=== PATIENT | female | born 1955 | race Caucasian/White ===

== ENCOUNTER 2018-09-09 12:43 | Emergency (ER) | payer OTHER ==
[2018-09-09 23:15] VITALS: BP 161/81
--- NOTE | 2018-09-10 07:40 | EDM.PDOC ---
ED HPI GENERAL MEDICAL PROBLEM - General Chief Complaint: General Stated Complaint: SENT DR [facility] Time Seen by Provider: 09/09/18 13:40 Source of Information: Reports: Patient History Limitations: Reports: No Limitations - History of Present Illness INITIAL COMMENTS - FREE TEXT/NARRATIVE: She was seen by nurse practitioner Yue Whitehead and noted to have a calcium of 12.4 she is otherwise asymptomatic. She takes 2 thousand units of vitamin D daily, and ingested Tums at 1 tab least 5 times per day for the last 3 days. ( Specifically the amount of calcium carbonate in Tums tablet ranges from 1000 mg to 570 mg per tablet). Patient is asymptomatic otherwise. Patient has lupus since 1993, was hospitalized for 6 months for pulmonary infection and had tracheostomy. She was treated in with prednisone that was stopped. 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 - Related Data Allergies Allergy/AdvReac Type Severity Reaction Status Date / Time Sulfa (Sulfonamide Allergy Swelling Verified 09/09/18 23:17 Antibiotics) SHRIMP Allergy Swelling Uncoded 09/09/18 23:17 Home Meds: Home Meds Gemfibrozil 1 tab PO BID 09/02/14 [History] Hydroxychloroquine Sulfate [Plaquenil] 200 mg PO DAILY 09/02/14 [History] Polyethylene Glycol 3350 [Miralax] 17 gm PO BID 09/02/14 [History] amLODIPine Besylate [Amlodipine Besylate] 5 mg PO DAILY 09/02/14 [History] atorvaSTATin [Lipitor] 20 mg PO BEDTIME 09/03/14 [History] Past Medical History Respiratory History: Reports: Other (See Below) 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 ED EXAM, GENERAL - Physical Exam Exam: See Below Free Text/Narrative:: Alert woman in no acute distress but just here to evaluate her calcium status. She has known chronic kidney disease. Taking calcium supplements/Tums and high doses vitamin D - 2000 units per day Exam Limited By: No Limitations General Appearance: Alert, WD/WN, No Apparent Distress Eye Exam: Bilateral Eye: Normal Inspection Nose: Normal Inspection, Normal Mucosa, No Blood Throat/Mouth: Normal Inspection, Normal Lips, Normal Oropharynx, Normal Voice Head: Atraumatic, Normocephalic Neck: Normal Inspection, Non-Tender, Full Range of Motion Respiratory/Chest: No Respiratory Distress, Lungs Clear, Normal Breath Sounds, No Accessory Muscle Use, Chest Non-Tender Cardiovascular: Normal Peripheral Pulses, Regular Rate, Rhythm, No Edema, No Gallop, No JVD, No Murmur, No Rub Peripheral Pulses: 1+: Radial (L), Radial (R), Femoral (L), Femoral (R), Posterior Tibial (L), Posterior Tibial (R) GI/Abdominal: Normal Bowel Sounds, Soft, Non-Tender, No Distention (Female) Exam: Deferred Rectal (Female) Exam: Normal Rectal Tone, Deferred Back Exam: Normal Inspection, Full Range of Motion Extremities: Normal Inspection, Normal Range of Motion, Non-Tender, No Pedal Edema, Normal Capillary Refill Neurological: Alert, Oriented, CN II-XII Intact, Normal Cognition, Normal Gait, Normal Reflexes, No Motor/Sensory Deficits Psychiatric: Normal Affect, Normal Mood Skin Exam: Warm, Dry, Intact, Normal Color Lymphatic: No Adenopathy Course - Vital Signs Last Recorded V/S: Last Vital Signs Temp 36.6 C 09/09/18 12:43 Pulse 65 09/09/18 16:37 Resp 18 09/09/18 16:37 BP 161/81 H 09/09/18 16:37 Pulse Ox 99 09/09/18 16:37 - Orders/Labs/Meds Orders: Active Orders 24 hr Category Date Time Status CALCIUM, IONIZED, SERUM Urgent Lab 09/09/18 16:00 Received Labs: Laboratory Tests 09/09/18 09/09/18 09/09/18 Range/Units 14:00 14:00 14:00 WBC 7.4 (4.5-12.0) X10-3/uL RBC 3.74 (3.23-5.20) x10(6)uL Hgb 12.4 (11.5-15.5) g/dL Hct 36.4 (30.0-51.3) % MCV 97.3 H (80-96) fL MCH 33.2 (27.7-33.6) pg MCHC 34.1 (32.2-35.4) g/dL RDW 11.8 (11.5-15.5) % Plt Count 250 (125-369) X10(3)uL MPV 8.6 (7.4-10.4) fL Neut % (Auto) 62.6 (46-82) % Lymph % (Auto) 24.0 (13-37) % Long % (Auto) 10.5 (4-12) % Eos % (Auto) 2 (1.0-5.0) % Baso % (Auto) 1 (0-2) % Neut # (Auto) 4.5 (1.6-8.3) # Lymph # (Auto) 1.8 (0.6-5.0) # Long # (Auto) 0.8 (0.0-1.3) # Eos # (Auto) 0.2 (0.0-0.8) # Baso # (Auto) 0.1 (0.0-0.2) # ESR 75 H (0-20) mm/hr Sodium (135-145) mmol/L Potassium (3.5-5.3) mmol/L Chloride (100-110) mmol/L Carbon Dioxide (21-32) mmol/L BUN (7-18) mg/dL Creatinine (0.55-1.02) mg/dL Est Cr Clr Drug Dosing Estimated GFR (MDRD) (>60) BUN/Creatinine Ratio (9-20) Glucose (80-116) mg/dL Calcium (8.6-10.2) mg/dL Magnesium (1.8-2.5) mg/dL Total Bilirubin (0.1-1.3) mg/dL AST (5-25) IU/L ALT (12-36) U/L Alkaline Phosphatase (56-112) IU/L C-Reactive Protein < 0.2 L (0.5-0.9) mg/dL Total Protein (6.0-8.0) g/dL Albumin (3.2-4.6) g/dL Globulin g/dL Albumin/Globulin Ratio Urine Color (YELLOW) Urine Appearance (CLEAR) Urine pH (5.0-6.5) Ur Specific [place] (1.010-1.025) Urine Protein (NEGATIVE) mg/dL Urine Glucose (UA) (NEGATIVE) mg/dL Urine Ketones (NEGATIVE) mg/dL Urine Occult Blood (NEGATIVE) Urine Nitrite (NEGATIVE) Urine Bilirubin (NEGATIVE) Urine Urobilinogen (NEGATIVE) mg/dL Ur Leukocyte Esterase (NEGATIVE) Urine RBC (0) Urine WBC (0) Ur Squamous Epith Cells (NS,R,O) Urine Bacteria (NS) 09/09/18 09/09/18 09/09/18 Range/Units 14:00 14:00 14:40 WBC (4.5-12.0) X10-3/uL RBC (3.23-5.20) x10(6)uL Hgb (11.5-15.5) g/dL Hct (30.0-51.3) % MCV (80-96) fL MCH (27.7-33.6) pg MCHC (32.2-35.4) g/dL RDW (11.5-15.5) % Plt Count (125-369) X10(3)uL MPV (7.4-10.4) fL Neut % (Auto) (46-82) % Lymph % (Auto) (13-37) % Long % (Auto) (4-12) % Eos % (Auto) (1.0-5.0) % Baso % (Auto) (0-2) % Neut # (Auto) (1.6-8.3) # Lymph # (Auto) (0.6-5.0) # Long # (Auto) (0.0-1.3) # Eos # (Auto) (0.0-0.8) # Baso # (Auto) (0.0-0.2) # ESR (0-20) mm/hr Sodium 140 (135-145) mmol/L Potassium 4.2 (3.5-5.3) mmol/L Chloride 103 (100-110) mmol/L Carbon Dioxide 30 (21-32) mmol/L BUN 44 H (7-18) mg/dL Creatinine 2.2 H* (0.55-1.02) mg/dL Est Cr Clr Drug Dosing TNP Estimated GFR (MDRD) 23 L (>60) BUN/Creatinine Ratio 20.0 (9-20) Glucose 108 (80-116) mg/dL Calcium 12.2 H (8.6-10.2) mg/dL Magnesium 1.5 L (1.8-2.5) mg/dL Total Bilirubin 0.4 (0.1-1.3) mg/dL AST 16 (5-25) IU/L ALT 18 (12-36) U/L Alkaline Phosphatase 111 (56-112) IU/L C-Reactive Protein (0.5-0.9) mg/dL Total Protein 8.3 H (6.0-8.0) g/dL Albumin 3.9 (3.2-4.6) g/dL Globulin 4.4 g/dL Albumin/Globulin Ratio 0.9 Urine Color Yellow (YELLOW) Urine Appearance Clear (CLEAR) Urine pH 7.0 H (5.0-6.5) Ur Specific [place] 1.010 (1.010-1.025) Urine Protein Negative (NEGATIVE) mg/dL Urine Glucose (UA) Normal (NEGATIVE) mg/dL Urine Ketones Negative (NEGATIVE) mg/dL Urine Occult Blood Negative (NEGATIVE) Urine Nitrite Negative (NEGATIVE) Urine Bilirubin Negative (NEGATIVE) Urine Urobilinogen Normal (NEGATIVE) mg/dL Ur Leukocyte Esterase Negative (NEGATIVE) Urine RBC 0-5 (0) Urine WBC 0-5 (0) Ur Squamous Epith Cells Occasional (NS,R,O) Urine Bacteria Rare H (NS) Departure - Departure Time of Disposition: 14:00 (Patient has hypercalcemia but is asymptomatic. Up-to -date acknowledges patient is less than 12 calcium and her symptomatically don' t need them to aggressive intervention emergent therapy. Patient's hydration is improved. Discontinue Tums. Discontinue vitamin D 2000 units today. Follow-up recheck her L Sim in one week earlier if worse. Marked kidney disease chronic disease stage IV secondary to lupus nephritis. Lupus Arthritis Medicine. And Her Kidney and Creatinine Clearance Will Need to Be Followed As Well As Her Calcium and Other Electrolytes.) Disposition: Home, Self-Care 01 Condition: Good Clinical Impression: Hypercalcemia, Chronic kidney disease, stage IV (severe), Lupus nephritis, Lupus arthritis - Discharge Information *PRESCRIPTION DRUG MONITORING PROGRAM REVIEWED*: Not Applicable *COPY OF PRESCRIPTION DRUG MONITORING REPORT IN PATIENT SUSANNE: Not Applicable Instructions: Hypercalcemia, Chronic Kidney Disease, Adult, [id number] Referrals: Chelsi Aleman NP [Primary Care Provider] - Forms: ED Department Discharge Additional Instructions: Stop taking here Tums. Discontinue taking vitamin D. He need drink at least 2 quarts of water per day. total of 64 ounces per day. The up-to-date literature suggests not to treat calcium at 12.0 as long as you are asymptomatic. Be sure to follow up with her doctor next 5-7 days to repeat your calcium. Your calcium is also elevated because you have kidney disease caused by your lupus. Your liver enzymes were very good today. - My Orders Last 24 Hours: My Active Orders 09/09/18 16:00 CALCIUM, IONIZED, SERUM Urgent - Assessment/Plan Last 24 Hours: My Active Orders 09/09/18 16:00 CALCIUM, IONIZED, SERUM Urgent
== END 2018-09-09 16:42 | disposition home or self-care (01) ==
LOC: FB.ED 12:43
DX: E83.52 Hypercalcemia (principal); N18.4 Chronic kidney disease, stage 4 (severe); M32.14 Glomerular disease in systemic lupus erythematosus; M19.90 Unspecified osteoarthritis, unspecified site; Z79.899 Other long term (current) drug therapy
CPT/HCPCS: 36415; 80053; 81001; 82330; 83735; 85025; 85651; 86140; 99283

== ENCOUNTER 2019-10-16 16:30 | Emergency (ER) | payer OTHER ==
[2019-10-16] MEDS ORDERED: Sodium Chloride 0.9% 10 ML Syringe FLUSH PRN (16:31)
--- NOTE | 2019-10-16 16:41 | EDM.PDOC ---
ED HPI GENERAL MEDICAL PROBLEM - General Chief Complaint: General Stated Complaint: NOT TAKING MEDS NOT EATING Time Seen by Provider: 10/16/19 16:38 Source of Information: Reports: EMS, Family History Limitations: Reports: Altered Mental Status - History of Present Illness INITIAL COMMENTS - FREE TEXT/NARRATIVE: noticed that three days ago patient had a glazed over look to her eyes, and he became concerned that something was wrong. The next day she was unable to get herself out of her chair, and wouldn't speak to him nor open her eyes, these symptoms improved later in the day. Yesterday these symptoms recurred, called 911, but patient refused to be transported to the hospital, again the symptoms improved later on in the evening. This morning, symptoms recurred and have not improve. Patient has not eating or drank at all today, and only minimally yesterday, and she has not taken her medications for two days. She presented with similar symptoms @10-15 years ago and was hospitalized at [facility], her symptoms were thought to be due to a neurologic manifestation of lupus. Duration: Day(s): (2-3) - Related Data Allergies Allergy/AdvReac Type Severity Reaction Status Date / Time Sulfa (Sulfonamide Allergy Swelling Verified 09/09/18 23:17 Antibiotics) SHRIMP Allergy Swelling Uncoded 09/09/18 23:17 Home Meds: Home Meds Gemfibrozil 1 tab PO BID 09/02/14 [History] Hydroxychloroquine Sulfate [Plaquenil] 200 mg PO DAILY 09/02/14 [History] Polyethylene Glycol 3350 [Miralax] 17 gm PO BID 09/02/14 [History] amLODIPine Besylate [Amlodipine Besylate] 5 mg PO DAILY 09/02/14 [History] atorvaSTATin [Lipitor] 20 mg PO BEDTIME 09/03/14 [History] Past Medical History Respiratory History: Reports: Other (See Below) Other Respiratory History: hx of a trach 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: Musculoskeletal History: Reports: Other (See Below) Other Musculoskeletal History: ankle surg L Immunologic History: Reports: SLE - Past Surgical History Female Surgical History: Reports: Section Social & Family History - Family History Family Medical History: Noncontributory - Caffeine Use Caffeine Use: Reports: None ED ROS GENERAL - Review of Systems Review Of Systems: Unable To Obtain Reason Not Obtained: Altered level of consciousness ED EXAM, GENERAL - Physical Exam Exam: See Below Exam Limited By: Altered Mental Status General Appearance: Lethargic Eye Exam: Bilateral Eye: EOMI, PERRL Throat/Mouth: No Airway Compromise, Other (dry oropharynx) Head: Atraumatic, Normocephalic Neck: Supple Respiratory/Chest: No Respiratory Distress, Lungs Clear, Normal Breath Sounds Cardiovascular: Regular Rate, Rhythm, No Murmur GI/Abdominal: Normal Bowel Sounds, Soft, No Distention, Tender (generalized) Neurological: Slow to Respond, Other (GCS=10 ([id number])) Skin Exam: Warm, Dry, Intact EKG INTERPRETATION EKG Date: 10/16/19 Time: 17:02 Rhythm: NSR Rate (Beats/Min): 66 P-Wave: Present ST-T: Normal QT: Normal Comparison: NA - No Prior EKG Course - Vital Signs Last Recorded V/S: Last Vital Signs Temp 36.7 C 10/16/19 18:09 Pulse 84 10/16/19 18:09 Resp 15 10/16/19 18:09 BP 141/70 H 10/16/19 18:09 Pulse Ox 100 10/16/19 18:09 - Orders/Labs/Meds Orders: Active Orders 24 hr Category Date Time Status Accu Check [Blood Glucose Check, Bedside] [RC] ONETIME Care 10/16/19 16:32 Active EKG Documentation Completion [RC] ASDIRECTED Care 10/16/19 16:33 Active Bonilla Catheter Insertion [Insert Urinary Catheter] [OM. Care 10/16/19 16:45 Ordered PC] Q24H Urinary Catheter Assessment [RC] QSHIFT Care 10/16/19 16:35 Active CXR [Chest 1V Frontal] [CR] Stat Exams 10/16/19 16:34 Stop Req Chest Abdomen Pelvis wo Cont [CT] Stat Exams 10/16/19 16:51 Taken Head wo Cont [CT] Stat Exams 10/16/19 16:34 Taken CULTURE BLOOD [BC] Urgent Lab 10/16/19 16:50 Received CULTURE BLOOD [BC] Urgent Lab 10/16/19 16:55 Received Sodium Chloride 0.45% 1,000 ml Med 10/16/19 18:45 Active IV ASDIRECTED Sodium Chloride 0.9% [Saline Flush] Med 10/16/19 16:31 Active 10 ml FLUSH ASDIRECTED PRN Blood Culture x2 Reflex Set [OM.PC] Urgent Oth 10/16/19 16:32 Ordered Saline Lock Insert [OM.PC] Routine Oth 10/16/19 16:31 Ordered EKG 12 Lead [EK] Stat Ther 10/16/19 16:32 Ordered Medication Orders Sodium Chloride (Sodium Chloride 0.45%) 1,000 mls @ 150 mls/hr IV ASDIRECTED SHARON Last Admin: 10/16/19 20:18 Dose: 150 mls/hr Sodium Chloride (Saline Flush) 10 ml FLUSH ASDIRECTED PRN PRN Reason: Keep Vein Open Labs: Laboratory Tests 10/16/19 10/16/19 10/16/19 Range/Units 16:55 16:55 16:55 WBC 9.0 (4.5-12.0) X10-3/uL RBC 3.63 (3.23-5.20) x10(6)uL Hgb 12.0 (11.5-15.5) g/dL Hct 35.6 (30.0-51.3) % MCV 97.9 H (80-96) fL MCH 33.1 (27.7-33.6) pg MCHC 33.8 (32.2-35.4) g/dL RDW 12.4 (11.5-15.5) % Plt Count 288 (125-369) X10(3)uL MPV 8.1 (7.4-10.4) fL Neut % (Auto) 79.8 (46-82) % Lymph % (Auto) 6.8 L (13-37) % Dodge % (Auto) 10.4 (4-12) % Eos % (Auto) 1 (1.0-5.0) % Baso % (Auto) 2 (0-2) % Neut # (Auto) 7.2 (1.6-8.3) # Lymph # (Auto) 0.6 (0.6-5.0) # Dodge # (Auto) 0.9 (0.0-1.3) # Eos # (Auto) 0.1 (0.0-0.8) # Baso # (Auto) 0.2 (0.0-0.2) # PT 11.3 H (9.0-11.1) sec INR 1.16 (1.00-1.24) APTT 23.4 L (24.4-33.2) SECONDS POC VBG pH (7.31-7.41) POC VBG pCO2 (41-51) mmHG POC VBG HCO3 (23-28) mmol/L POC VBG Total CO2 (24-29) mmol/L POC VBG Base Excess (-2-3) mmol/L Sodium 152 H D (135-145) mmol/L Potassium 4.3 (3.5-5.3) mmol/L Chloride 112 H D (100-110) mmol/L Carbon Dioxide 22 (21-32) mmol/L BUN 81 H D (7-18) mg/dL Creatinine 2.9 H* (0.55-1.02) mg/dL Est Cr Clr Drug Dosing TNP Estimated GFR (MDRD) 16 L (>60) BUN/Creatinine Ratio 27.9 H (9-20) Glucose 132 H (80-116) mg/dL Lactic Acid (0.4-2.0) mmol/L Calcium 10.5 H (8.6-10.2) mg/dL Magnesium (1.8-2.5) mg/dL Total Bilirubin 0.5 (0.1-1.3) mg/dL AST 26 H D (5-25) IU/L ALT 32 D (12-36) U/L Alkaline Phosphatase 183 H (56-112) IU/L Creatine Kinase (60-160) IU/L Troponin I (4.0-60.3) pg/mL Total Protein 8.5 H (6.0-8.0) g/dL Albumin 3.9 (3.2-4.6) g/dL Globulin 4.6 g/dL Albumin/Globulin Ratio 0.9 Lipase (73-393) U/L Urine Color (YELLOW) Urine Appearance (CLEAR) Urine pH (5.0-6.5) Ur Specific [place] (1.010-1.025) Urine Protein (NEGATIVE) mg/dL Urine Glucose (UA) (NORMAL) mg/dL Urine Ketones (NEGATIVE) mg/dL Urine Occult Blood (NEGATIVE) Urine Nitrite (NEGATIVE) Urine Bilirubin (NEGATIVE) Urine Urobilinogen (NEGATIVE) mg/dL Ur Leukocyte Esterase (NEGATIVE) Urine RBC (0-5) Urine WBC (0-5) Ur Squamous Epith Cells (NS,R,O) Urine Bacteria (NS) Urine Opiates Screen (NEGATIVE) Ur Oxycodone Screen (NEGATIVE) Ur Propoxyphene Screen (NEGATIVE) Ur Barbituates Screen (NEGATIVE) Ur Tricyclics Screen (NEGATIVE) Ur Phencyclidine Scrn (NEGATIVE) Ur Amphetamine Screen (NEGATIVE) Urine MDMA Screen (NEGATIVE) U Benzodiazepines Scrn (NEGATIVE) U Cocaine Metab Screen (NEGATIVE) U Marijuana (THC) Screen (NEGATIVE) Ethyl Alcohol (<0.03) % 10/16/19 10/16/19 10/16/19 Range/Units 16:55 16:55 16:55 WBC (4.5-12.0) X10-3/uL RBC (3.23-5.20) x10(6)uL Hgb (11.5-15.5) g/dL Hct (30.0-51.3) % MCV (80-96) fL MCH (27.7-33.6) pg MCHC (32.2-35.4) g/dL RDW (11.5-15.5) % Plt Count (125-369) X10(3)uL MPV (7.4-10.4) fL Neut % (Auto) (46-82) % Lymph % (Auto) (13-37) % [place] % (Auto) (4-12) % Eos % (Auto) (1.0-5.0) % Baso % (Auto) (0-2) % Neut # (Auto) (1.6-8.3) # Lymph # (Auto) (0.6-5.0) # Dodge # (Auto) (0.0-1.3) # Eos # (Auto) (0.0-0.8) # Baso # (Auto) (0.0-0.2) # PT (9.0-11.1) sec INR (1.00-1.24) APTT (24.4-33.2) SECONDS POC VBG pH (7.31-7.41) POC VBG pCO2 (41-51) mmHG POC VBG HCO3 (23-28) mmol/L POC VBG Total CO2 (24-29) mmol/L POC VBG Base Excess (-2-3) mmol/L Sodium (135-145) mmol/L Potassium (3.5-5.3) mmol/L Chloride (100-110) mmol/L Carbon Dioxide (21-32) mmol/L BUN (7-18) mg/dL Creatinine (0.55-1.02) mg/dL Est Cr Clr Drug Dosing Estimated GFR (MDRD) (>60) BUN/Creatinine Ratio (9-20) Glucose (80-116) mg/dL Lactic Acid 1.3 (0.4-2.0) mmol/L Calcium (8.6-10.2) mg/dL Magnesium 2.7 H (1.8-2.5) mg/dL Total Bilirubin (0.1-1.3) mg/dL AST (5-25) IU/L ALT (12-36) U/L Alkaline Phosphatase (56-112) IU/L Creatine Kinase (60-160) IU/L Troponin I 148.0 H* (4.0-60.3) pg/mL Total Protein (6.0-8.0) g/dL Albumin (3.2-4.6) g/dL Globulin g/dL Albumin/Globulin Ratio Lipase (73-393) U/L Urine Color (YELLOW) Urine Appearance (CLEAR) Urine pH (5.0-6.5) Ur Specific [place] (1.010-1.025) Urine Protein (NEGATIVE) mg/dL Urine Glucose (UA) (NORMAL) mg/dL Urine Ketones (NEGATIVE) mg/dL Urine Occult Blood (NEGATIVE) Urine Nitrite (NEGATIVE) Urine Bilirubin (NEGATIVE) Urine Urobilinogen (NEGATIVE) mg/dL Ur Leukocyte Esterase (NEGATIVE) Urine RBC (0-5) Urine WBC (0-5) Ur Squamous Epith Cells (NS,R,O) Urine Bacteria (NS) Urine Opiates Screen (NEGATIVE) Ur Oxycodone Screen (NEGATIVE) Ur Propoxyphene Screen (NEGATIVE) Ur Barbituates Screen (NEGATIVE) Ur Tricyclics Screen (NEGATIVE) Ur Phencyclidine Scrn (NEGATIVE) Ur Amphetamine Screen (NEGATIVE) Urine MDMA Screen (NEGATIVE) U Benzodiazepines Scrn (NEGATIVE) U Cocaine Metab Screen (NEGATIVE) U Marijuana (THC) Screen (NEGATIVE) Ethyl Alcohol (<0.03) % 10/16/19 10/16/19 10/16/19 Range/Units 16:55 16:55 16:55 WBC (4.5-12.0) X10-3/uL RBC (3.23-5.20) x10(6)uL Hgb (11.5-15.5) g/dL Hct (30.0-51.3) % MCV (80-96) fL MCH (27.7-33.6) pg MCHC (32.2-35.4) g/dL RDW (11.5-15.5) % Plt Count (125-369) X10(3)uL MPV (7.4-10.4) fL Neut % (Auto) (46-82) % Lymph % (Auto) (13-37) % [place] % (Auto) (4-12) % Eos % (Auto) (1.0-5.0) % Baso % (Auto) (0-2) % Neut # (Auto) (1.6-8.3) # Lymph # (Auto) (0.6-5.0) # Dodge # (Auto) (0.0-1.3) # Eos # (Auto) (0.0-0.8) # Baso # (Auto) (0.0-0.2) # PT (9.0-11.1) sec INR (1.00-1.24) APTT (24.4-33.2) SECONDS POC VBG pH (7.31-7.41) POC VBG pCO2 (41-51) mmHG POC VBG HCO3 (23-28) mmol/L POC VBG Total CO2 (24-29) mmol/L POC VBG Base Excess (-2-3) mmol/L Sodium (135-145) mmol/L Potassium (3.5-5.3) mmol/L Chloride (100-110) mmol/L Carbon Dioxide (21-32) mmol/L BUN (7-18) mg/dL Creatinine (0.55-1.02) mg/dL Est Cr Clr Drug Dosing Estimated GFR (MDRD) (>60) BUN/Creatinine Ratio (9-20) Glucose (80-116) mg/dL Lactic Acid (0.4-2.0) mmol/L Calcium (8.6-10.2) mg/dL Magnesium (1.8-2.5) mg/dL Total Bilirubin (0.1-1.3) mg/dL AST (5-25) IU/L ALT (12-36) U/L Alkaline Phosphatase (56-112) IU/L Creatine Kinase 180 H (60-160) IU/L Troponin I (4.0-60.3) pg/mL Total Protein (6.0-8.0) g/dL Albumin (3.2-4.6) g/dL Globulin g/dL Albumin/Globulin Ratio Lipase 281 (73-393) U/L Urine Color (YELLOW) Urine Appearance (CLEAR) Urine pH (5.0-6.5) Ur Specific [place] (1.010-1.025) Urine Protein (NEGATIVE) mg/dL Urine Glucose (UA) (NORMAL) mg/dL Urine Ketones (NEGATIVE) mg/dL Urine Occult Blood (NEGATIVE) Urine Nitrite (NEGATIVE) Urine Bilirubin (NEGATIVE) Urine Urobilinogen (NEGATIVE) mg/dL Ur Leukocyte Esterase (NEGATIVE) Urine RBC (0-5) Urine WBC (0-5) Ur Squamous Epith Cells (NS,R,O) Urine Bacteria (NS) Urine Opiates Screen (NEGATIVE) Ur Oxycodone Screen (NEGATIVE) Ur Propoxyphene Screen (NEGATIVE) Ur Barbituates Screen (NEGATIVE) Ur Tricyclics Screen (NEGATIVE) Ur Phencyclidine Scrn (NEGATIVE) Ur Amphetamine Screen (NEGATIVE) Urine MDMA Screen (NEGATIVE) U Benzodiazepines Scrn (NEGATIVE) U Cocaine Metab Screen (NEGATIVE) U Marijuana (THC) Screen (NEGATIVE) Ethyl Alcohol < 0.03 (<0.03) % 10/16/19 10/16/19 10/16/19 Range/Units 17:02 17:15 17:20 WBC (4.5-12.0) X10-3/uL RBC (3.23-5.20) x10(6)uL Hgb (11.5-15.5) g/dL Hct (30.0-51.3) % MCV (80-96) fL MCH (27.7-33.6) pg MCHC (32.2-35.4) g/dL RDW (11.5-15.5) % Plt Count (125-369) X10(3)uL MPV (7.4-10.4) fL Neut % (Auto) (46-82) % Lymph % (Auto) (13-37) % [place] % (Auto) (4-12) % Eos % (Auto) (1.0-5.0) % Baso % (Auto) (0-2) % Neut # (Auto) (1.6-8.3) # Lymph # (Auto) (0.6-5.0) # [place] # (Auto) (0.0-1.3) # Eos # (Auto) (0.0-0.8) # Baso # (Auto) (0.0-0.2) # PT (9.0-11.1) sec INR (1.00-1.24) APTT (24.4-33.2) SECONDS POC VBG pH 7.31 (7.31-7.41) POC VBG pCO2 40.1 L (41-51) mmHG POC VBG HCO3 20.2 L (23-28) mmol/L POC VBG Total CO2 21 L (24-29) mmol/L POC VBG Base Excess -6 L (-2-3) mmol/L Sodium (135-145) mmol/L Potassium (3.5-5.3) mmol/L Chloride (100-110) mmol/L Carbon Dioxide (21-32) mmol/L BUN (7-18) mg/dL Creatinine (0.55-1.02) mg/dL Est Cr Clr Drug Dosing Estimated GFR (MDRD) (>60) BUN/Creatinine Ratio (9-20) Glucose (80-116) mg/dL Lactic Acid (0.4-2.0) mmol/L Calcium (8.6-10.2) mg/dL Magnesium (1.8-2.5) mg/dL Total Bilirubin (0.1-1.3) mg/dL AST (5-25) IU/L ALT (12-36) U/L Alkaline Phosphatase (56-112) IU/L Creatine Kinase (60-160) IU/L Troponin I (4.0-60.3) pg/mL Total Protein (6.0-8.0) g/dL Albumin (3.2-4.6) g/dL Globulin g/dL Albumin/Globulin Ratio Lipase (73-393) U/L Urine Color Yellow (YELLOW) Urine Appearance Cloudy (CLEAR) Urine pH 5.0 (5.0-6.5) Ur Specific [place] 1.015 (1.010-1.025) Urine Protein Trace (NEGATIVE) mg/dL Urine Glucose (UA) Normal (NORMAL) mg/dL Urine Ketones Negative (NEGATIVE) mg/dL Urine Occult Blood Moderate H (NEGATIVE) Urine Nitrite Positive H (NEGATIVE) Urine Bilirubin Small H (NEGATIVE) Urine Urobilinogen Normal (NEGATIVE) mg/dL Ur Leukocyte Esterase Moderate H (NEGATIVE) Urine RBC 5-10 H (0-5) Urine WBC 40-50 H (0-5) Ur Squamous Epith Cells Occasional (NS,R,O) Urine Bacteria Many H (NS) Urine Opiates Screen Negative (NEGATIVE) Ur Oxycodone Screen Negative (NEGATIVE) Ur Propoxyphene Screen Negative (NEGATIVE) Ur Barbituates Screen Negative (NEGATIVE) Ur Tricyclics Screen Negative (NEGATIVE) Ur Phencyclidine Scrn Negative (NEGATIVE) Ur Amphetamine Screen Negative (NEGATIVE) Urine MDMA Screen Negative (NEGATIVE) U Benzodiazepines Scrn Negative (NEGATIVE) U Cocaine Metab Screen Negative (NEGATIVE) U Marijuana (THC) Screen Negative (NEGATIVE) Ethyl Alcohol (<0.03) % 10/16/19 Range/Units 19:00 WBC (4.5-12.0) X10-3/uL RBC (3.23-5.20) x10(6)uL Hgb (11.5-15.5) g/dL Hct (30.0-51.3) % MCV (80-96) fL MCH (27.7-33.6) pg MCHC (32.2-35.4) g/dL RDW (11.5-15.5) % Plt Count (125-369) X10(3)uL MPV (7.4-10.4) fL Neut % (Auto) (46-82) % Lymph % (Auto) (13-37) % [place] % (Auto) (4-12) % Eos % (Auto) (1.0-5.0) % Baso % (Auto) (0-2) % Neut # (Auto) (1.6-8.3) # Lymph # (Auto) (0.6-5.0) # Dodge # (Auto) (0.0-1.3) # Eos # (Auto) (0.0-0.8) # Baso # (Auto) (0.0-0.2) # PT (9.0-11.1) sec INR (1.00-1.24) APTT (24.4-33.2) SECONDS POC VBG pH (7.31-7.41) POC VBG pCO2 (41-51) mmHG POC VBG HCO3 (23-28) mmol/L POC VBG Total CO2 (24-29) mmol/L POC VBG Base Excess (-2-3) mmol/L Sodium (135-145) mmol/L Potassium (3.5-5.3) mmol/L Chloride (100-110) mmol/L Carbon Dioxide (21-32) mmol/L BUN (7-18) mg/dL Creatinine (0.55-1.02) mg/dL Est Cr Clr Drug Dosing Estimated GFR (MDRD) (>60) BUN/Creatinine Ratio (9-20) Glucose (80-116) mg/dL Lactic Acid (0.4-2.0) mmol/L Calcium (8.6-10.2) mg/dL Magnesium (1.8-2.5) mg/dL Total Bilirubin (0.1-1.3) mg/dL AST (5-25) IU/L ALT (12-36) U/L Alkaline Phosphatase (56-112) IU/L Creatine Kinase (60-160) IU/L Troponin I 145.6 H* (4.0-60.3) pg/mL Total Protein (6.0-8.0) g/dL Albumin (3.2-4.6) g/dL Globulin g/dL Albumin/Globulin Ratio Lipase (73-393) U/L Urine Color (YELLOW) Urine Appearance (CLEAR) Urine pH (5.0-6.5) Ur Specific [place] (1.010-1.025) Urine Protein (NEGATIVE) mg/dL Urine Glucose (UA) (NORMAL) mg/dL Urine Ketones (NEGATIVE) mg/dL Urine Occult Blood (NEGATIVE) Urine Nitrite (NEGATIVE) Urine Bilirubin (NEGATIVE) Urine Urobilinogen (NEGATIVE) mg/dL Ur Leukocyte Esterase (NEGATIVE) Urine RBC (0-5) Urine WBC (0-5) Ur Squamous Epith Cells (NS,R,O) Urine Bacteria (NS) Urine Opiates Screen (NEGATIVE) Ur Oxycodone Screen (NEGATIVE) Ur Propoxyphene Screen (NEGATIVE) Ur Barbituates Screen (NEGATIVE) Ur Tricyclics Screen (NEGATIVE) Ur Phencyclidine Scrn (NEGATIVE) Ur Amphetamine Screen (NEGATIVE) Urine MDMA Screen (NEGATIVE) U Benzodiazepines Scrn (NEGATIVE) U Cocaine Metab Screen (NEGATIVE) U Marijuana (THC) Screen (NEGATIVE) Ethyl Alcohol (<0.03) % Meds: Medications Generic Name Dose Route Start Last Admin Trade Name Freq PRN Reason Stop Dose Admin Sodium Chloride 1,000 mls @ 150 mls/hr 10/16/19 18:45 10/16/19 20:18 Sodium Chloride 0.45% IV 150 mls/hr ASDIRECTED SHARON Administration Sodium Chloride 10 ml 10/16/19 16:31 Saline Flush FLUSH ASDIRECTED PRN Keep Vein Open Discontinued Medications Generic Name Dose Route Start Last Admin Trade Name Freq PRN Reason Stop Dose Admin Aspirin 300 mg 10/16/19 17:40 Aspirin RECTAL 10/16/19 17:41 .ONCE ONE Aspirin 324 mg 10/16/19 18:09 Aspirin PO 10/16/19 18:10 ONETIME ONE Ceftriaxone Sodium 1 gm 10/16/19 18:14 10/16/19 19:01 Rocephin IVPUSH 10/16/19 18:15 1 gm .ONCE ONE Administration Sodium Chloride 1,000 mls @ 999 mls/hr 10/16/19 16:45 10/16/19 20:19 Normal Saline IV 999 mls/hr .BOLUS SHARON Administration - Radiology Interpretation Free Text/Narrative:: CT Head w/o contrast: No acute abnormality. CT Chest w/o contrast: Areas of infiltrative change are noted bilaterally possibly representing pneumonia and a degree of linear atelectasis. CT Abd/pelvis w/o contrast: Cholelithiasis, somewhat prominent CBD. At the renal pelvis on the left there is fat stranding and prominence raising question of blood clots or even neoplastic process in that area. The ureter distal to the pelvis is normal in caliber. - Re-Assessments/Exams Free Text/Narrative Re-Assessment/Exam: 10/16/19 19:14 Mental status improved, GCS=15 after 1.5L NS bolus, no urine output yet though. 10/16/19 20:12 Still no urine output after a total of 2L NS. 2-hour troponin is lower. Patient denies chest pain. 10/16/19 20:28 Dr. Rausch accepts patient for transfer to [facility], will transfer by ALS ground. Departure - Departure Time of Disposition: 20:29 Disposition: DC/Tfer to Acute Hospital 02 Condition: Fair Clinical Impression: ТАТЬЯНА (acute kidney injury), Hypernatremia, Elevated troponin UTI (urinary tract infection) Qualifiers: Urinary tract infection type: acute cystitis Hematuria presence: with hematuria Qualified Code(s): N30.01 - Acute cystitis with hematuria Altered mental status Qualifiers: Altered mental status type: unspecified Qualified Code(s): R41.82 - Altered mental status, unspecified - Discharge Information Referrals: Chelsi Aleman NP [Primary Care Provider] - Forms: ED Department Discharge Sepsis Event Note - Focused Exam Vital Signs: Vital Signs Temp Pulse Resp BP Pulse Ox 10/16/19 18:09 36.7 C 84 15 141/70 H 100 Date Exam was Performed: 10/16/19 Time Exam was Performed: 20:28 - My Orders Last 24 Hours: My Active Orders 10/16/19 16:31 Sodium Chloride 0.9% [Saline Flush] 10 ml FLUSH ASDIRECTED PRN Saline Lock Insert [OM.PC] Routine 10/16/19 16:32 Accu Check [Blood Glucose Check, Bedside] [RC] ONETIME Blood Culture x2 Reflex Set [OM.PC] Urgent EKG 12 Lead [EK] Stat 10/16/19 16:33 EKG Documentation Completion [RC] ASDIRECTED 10/16/19 16:34 CXR [Chest 1V Frontal] [CR] Stat Head wo Cont [CT] Stat 10/16/19 16:35 Urinary Catheter Assessment [RC] QSHIFT 10/16/19 16:45 Bonilla Catheter Insertion [Insert Urinary Catheter] [OM.PC] Q24H 10/16/19 16:50 CULTURE BLOOD [BC] Urgent 10/16/19 16:51 Chest Abdomen Pelvis wo Cont [CT] Stat 10/16/19 16:55 CULTURE BLOOD [BC] Urgent 10/16/19 18:45 Sodium Chloride 0.45% 1,000 ml IV ASDIRECTED - Assessment/Plan Last 24 Hours: My Active Orders 10/16/19 16:31 Sodium Chloride 0.9% [Saline Flush] 10 ml FLUSH ASDIRECTED PRN Saline Lock Insert [OM.PC] Routine 10/16/19 16:32 Accu Check [Blood Glucose Check, Bedside] [RC] ONETIME Blood Culture x2 Reflex Set [OM.PC] Urgent EKG 12 Lead [EK] Stat 10/16/19 16:33 EKG Documentation Completion [RC] ASDIRECTED 10/16/19 16:34 CXR [Chest 1V Frontal] [CR] Stat Head wo Cont [CT] Stat 10/16/19 16:35 Urinary Catheter Assessment [RC] QSHIFT 10/16/19 16:45 Bonilla Catheter Insertion [Insert Urinary Catheter] [OM.PC] Q24H 10/16/19 16:50 CULTURE BLOOD [BC] Urgent 10/16/19 16:51 Chest Abdomen Pelvis wo Cont [CT] Stat 10/16/19 16:55 CULTURE BLOOD [BC] Urgent 10/16/19 18:45 Sodium Chloride 0.45% 1,000 ml IV ASDIRECTED
[2019-10-16] MEDS: Sodium Chloride 0.9% 1,000 ML IV SCH ×2 (16:52→20:19)
[2019-10-16] MEDS ORDERED: Aspirin 300 MG Supp RECTAL ONE (17:40)
[2019-10-16] MEDS ORDERED: Aspirin 81 MG Tab.Chew PO ONE (18:09)
[2019-10-16 18:10] VITALS: BP 141/70; PULSE 84
[2019-10-16] MEDS ORDERED: cefTRIAXone 1 GM Vial IVPUSH ONE (18:14)
[2019-10-16] MEDS ORDERED: Sodium Chloride 0.45% 1,000 ML IV SCH (18:45)
== END 2019-10-16 20:30 ==
LOC: FB.ED 16:30
DX: N17.9 Acute kidney failure, unspecified (principal); E87.0 Hyperosmolality and hypernatremia; N30.01 Acute cystitis with hematuria; R79.89 Other specified abnormal findings of blood chemistry; Z88.2 Allergy status to sulfonamides; Z91.013 Allergy to seafood; Z79.899 Other long term (current) drug therapy
CPT/HCPCS: 36415; 51702; 70450; 71250; 74176; 80053; 80305; 80307; 81001; 82550; 82803; 82962; 83605; 83690; 83735; 84484; 85025; 85610; 85730; 87040; 93005; 96361; 96374; 99285; A9270; J0696; J3490; J7030

== ENCOUNTER 2021-12-13 21:49 | Emergency (ER) | payer OTHER ==
[2021-12-13] MEDS ORDERED: traMADol 50 MG Tab PO ONE (21:50)
[2021-12-13] MEDS: Ketorolac 30 MG/ML SDV IM ONE (22:00)
[2021-12-13] MEDS: LORazepam 2 MG/ML SDV IM ONE (22:01)
[2021-12-14 01:44] VITALS: BP 136/62; PULSE 88
== END 2021-12-13 23:50 | disposition home or self-care (01) ==
LOC: FB.ED 21:49
DX: K59.00 Constipation, unspecified (principal); Z88.2 Allergy status to sulfonamides; Z91.018 Allergy to other foods; Z88.8 Allergy status to other drugs, medicaments and biological substances
CPT/HCPCS: 36415; 74176; 80053; 83690; 84484; 85025; 93005; 93010; 96372; 99283; 99284-25; A9270-GY; J1885; J2060